=== PATIENT | male | born 2000 | race Caucasian/White ===

== ENCOUNTER 2021-12-31 16:48 | Emergency (ER) | payer OTHER ==
[~2021-12-31] VITALS: Ht 185.4 cm; Wt 91.1 kg
[2021-12-31] MEDS ORDERED: IBUPROFEN 800 MG TAB PO ONE (18:15)
[2021-12-31] MEDS ORDERED: CARBAMIDE PEROXIDE 6.5% OTIC SOLN 15ML AD STA (18:18)
[2021-12-31] MEDS ORDERED: DEBR6.5S4 OTIC (18:31)
[2021-12-31] MEDS ORDERED: DOCUSATE SOD LIQ 100MG/10ML UDC PO ONE (18:40)
[2021-12-31 20:36] VITALS: BP 117/61
== END 2021-12-31 20:37 | disposition home or self-care (01) ==
LOC: M ED 16:48
DX: H61.23 Impacted cerumen, bilateral (principal); F17.290 Nicotine dependence, other tobacco product, uncomplicated

== ENCOUNTER → 2022-11-01 | Outpatient (REF) ==
[~2022-11-01] MED LIST: DEBR6.5S4 OTIC
== END ==
LOC: M PLAIMG 14:21
PROVIDERS: ATTEND Internal Medicine
DX: R06.02 Shortness of breath (principal)

== ENCOUNTER 2022-11-13 18:54 | Emergency (ER) | payer OTHER ==
[~2022-11-13] VITALS: Ht 185.4 cm; Wt 92.5 kg
[2022-11-13] MEDS ORDERED: IBUP80TA PO (21:39)
[2022-11-13 21:41] VITALS: BP 125/62
== END 2022-11-13 21:44 | disposition home or self-care (01) ==
LOC: M ED 18:54
DX: S93.524A Sprain of metatarsophalangeal joint of right lesser toe(s), initial encounter (principal); S92.354A Nondisplaced fracture of fifth metatarsal bone, right foot, initial encounter for closed fracture; X50.1XXA Overexertion from prolonged static or awkward postures, initial encounter; Y99.1 Military activity